=== PATIENT | male | born 1965 | race Caucasian/White ===

== ENCOUNTER 2021-07-04 00:51 | Emergency (ER) | payer MEDICAID, OTHER ==
[~2021-07-04] VITALS: Ht 193 cm; Wt 86.2 kg
--- NOTE | 2021-07-04 00:59 | NUR ---
BIBSELF C/O L PINKY AVULSION, UPDATED TDAP. PT A/OX4
[2021-07-04 01:11] VITALS: BP 129/69
[2021-07-04] MEDS ORDERED: LIDOCAINE HCL/MPF 1% 30 ML VIAL IJ ONE (01:15)
--- NOTE | 2021-07-04 01:47 | NUR ---
Patient discharged to home in stable condition. Written and verbal after care instructions given. Patient verbalizes understanding of instruction. PT ambulatory with a steady gait. Dressing to L pinky changed.
== END 2021-07-04 01:48 | disposition home or self-care (01) ==
LOC: ER 00:55
DX: S61.207A Unspecified open wound of left little finger without damage to nail, initial encounter (principal); F17.200 Nicotine dependence, unspecified, uncomplicated; W26.8XXA Contact with other sharp object(s), not elsewhere classified, initial encounter; Y93.89 Activity, other specified; Y92.89 Other specified places as the place of occurrence of the external cause; Y99.8 Other external cause status
CPT/HCPCS: 99282; A6403; J3490